=== PATIENT | male | born 1960 | race Caucasian/White ===

== ENCOUNTER 2020-07-31 08:49 | Emergency (ER) | payer MEDICAID ==
[~2020-07-31] VITALS: Ht 170.2 cm; Wt 69.9 kg
--- NOTE | 2020-07-31 08:49 | NUR ---
PT BIBRA FROM PRISON C/O SI WITH NO SPECIFIC PLAN. PT IS AAOX3, NOT IN RESPIRATORY DISTRESS, V/S STABLE, KEPT RESTED AND COMFORTABLE. WILL CONTINUE TO MONITOR, REUBEN SITTER AT BEDSIDE.
--- NOTE | 2020-07-31 08:55 | NUR ---
AT BEDSIDE FOR EVAL.
--- NOTE | 2020-07-31 09:00 | NUR ---
ER PHLEB AT BEDSIDE FOR BLOOD DRAW.
[2020-07-31 09:34] LABS: BASOPHILS # (AUTO) 0.1 /CMM (0.0-0.2); BASOPHILS % (AUTO) 0.6 % (0.0-2.0); EOSINOPHILS % (AUTO) 1.3 % (0.0-6.0); HEMATOCRIT 37 % (39-51); HEMOGLOBIN 12.2 g/dL (13.5-17.5); LYMPHOCYTES # (AUTO) 1.4 /CMM (0.8-4.8); LYMPHOCYTES % (AUTO) 12.4 % (20.0-44.0); MEAN CORPUSCULAR HGB CONC 33 g/dl (31.0-36.0); MEAN CORPUSCULAR VOLUME 84 fL (80-96); MONOCYTES # (AUTO) 0.9 /CMM (0.1-1.30); MONOCYTES % (AUTO) 7.9 % (2.0-12.0); NEUTROPHILS # (AUTO) 8.6 /CMM (1.8-8.9); NEUTROPHILS % (AUTO) 77.8 % (43.0-81.0); PLATELET COUNT (AUTO) 348 /CMM (150-450); RED BLOOD CELL COUNT(AUTO) 4.44 MIL/uL (4.5-6.0); WHITE BLOOD COUNT (AUTO) 11.1 K/uL (4.3-11.0)
[2020-07-31 09:39] LABS: CALCIUM, SERUM 9.5 mg/dL (8.5-10.1); CARBON DIOXIDE 27 mmol/L (21-32); CHLORIDE 103 mmol/L (98-107); CREATININE 1.1 mg/dL (0.6-1.3); GLUCOSE 122 mg/dL (74-106); SODIUM SERUM 139 mmol/L (136-145); UREA NITROGEN, BLOOD 18 mg/dL (7-18)
[2020-07-31 09:47] LABS: ACETAMINOPHEN 0 ug/ml (10-30); ALANINE AMINOTRANSFERASE 40 U/L (12-78); ALBUMIN 3.4 g/dL (3.4-5.0); ALCOHOL, BLOOD < 3 mg/dL (0-0); ALKALINE PHOSPHATASE 70 U/L (46-116); ASPARTATE AMINOTRANSFERASE 51 U/L (15-37); BILIRUBIN,DIRECT 0.1 mg/dL (0.0-0.2); BILIRUBIN,TOTAL 0.4 mg/dL (0.2-1.0); TOTAL PROTEIN, SERUM 8.1 g/dL (6.4-8.2)
--- NOTE | 2020-07-31 10:02 | NUR ---
URINE SPECIMEN COLLECTED AND SENT TO LAB.
[2020-07-31] MEDS ORDERED: LORAZEPAM INJ 2 MG/ML VIAL ONE (10:10)
[2020-07-31] MEDS ORDERED: HALOPERIDOL LACTATE INJ 5 MG/ML VIAL ONE ×2 (10:10→16:17)
[2020-07-31] MEDS ORDERED: diphenhydrAMINE HCL 50 MG/ML VIAL ONE ×2 (10:10→16:17)
[2020-07-31] MEDS ORDERED: HALOPERIDOL LACTATE INJ 5 MG/ML VIAL IM ONE ×2 (10:30→15:00)
[2020-07-31] MEDS ORDERED: LORAZEPAM INJ 2 MG/ML VIAL IM/IV ONE (10:30)
[2020-07-31] MEDS ORDERED: diphenhydrAMINE HCL 50 MG/ML VIAL IM ONE ×2 (10:30→15:00)
[2020-07-31 10:43] LABS: BILIRUBIN,URINE SMALL (NEGATIVE); COLOR,URINE YELLOW (YELLOW); LEUKOCYTE ESTERASE ,URINE NEGATIVE (NEGATIVE); NITRITE, URINE NEGATIVE (NEGATIVE); PROTEIN,URINE 100 mg/dl (NEGATIVE); UGLUCOSE NEGATIVE (NEGATIVE)
[2020-07-31 11:36] LABS: BACTERIA,URINE Few /HPF (None Seen); FINE GRANULAR CASTS,URINE Few /LPF (None Seen); RBC,URINE 0-2 /HPF (0-2); SQUAMOUS EPITHELIAL CELL,UR Few /HPF (None Seen); WBC,URINE 0-2 /HPF (0-3)
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
--- NOTE | 2020-07-31 19:36 | NUR ---
ASSUMED CARE. PT RESTING QUIETLY, NO ACUTE DISTRESS NOTED, RESP EVEN AND UNLABORED. 1:1 SITTER ATBEDSIDE FOR PT SAFETY.
--- NOTE | 2020-08-01 00:03 | NUR ---
PT ASLEEP, NO ACUTE DISTRESS NOTED, RESP EVEN AND UNLABORED. CALL LIGHT WIHTIN REACH. WILL CONTINUE TO MONITOR PT. 1:1 SITTER REMAINS AT BEDSIDE.
--- NOTE | 2020-08-01 06:26 | NUR ---
PT ASLEEP, NO ACUTE DISTRESS NOTED, RESP EVEN AND UNLABORED. CALL LIGHT WIHTIN REACH. WILL CONTINUE TO MONITOR PT. 1:1 SITTER REMAINS AT BEDSIDE.
--- NOTE | 2020-08-01 08:30 | NUR ---
PT ASLEEP, EASILY AROUSABLE, NO ACUTE DISTRESS NOTED, RESP EVEN AND UNLABORED. CALL LIGHT WITHIN REACH. WILL CONTINUE TO MONITOR PT. 1:1 SITTER REMAINS AT BEDSIDE.
--- NOTE | 2020-08-01 09:19 | NUR ---
CALLED MARLENI [phone] SHE SAID SCHEDULE IS INCORRECT AND TO CALL MARVIN
--- NOTE | 2020-08-01 09:21 | NUR ---
CALLED MARVIN [phone] [facility].
[2020-08-01] MEDS ORDERED: HALOPERIDOL LACTATE INJ 5 MG/ML VIAL IM ONE (09:30)
[2020-08-01] MEDS ORDERED: HALOPERIDOL LACTATE INJ 5 MG/ML VIAL ONE (09:31)
--- NOTE | 2020-08-01 09:36 | NUR ---
agitated. haldol 5mg im given. sitter at bedside. stable vitals.
--- NOTE | 2020-08-01 11:11 | NUR ---
Follow up: SW met with pt. bedside. Patient is lying in bed, awake with eyes close and responding to internal stimuli. Pt.'s speech is pressured and slurred. Pt. was medicated with Haldol IM this morning. CARLIE notified SS Director, Marce Saldivar that pt. may benefit from being placed on a hold for psychiatric treatment as pt.'s symptoms do not seem to be improving. SW will follow up as needed. CARLIE called admitting [phone] to assist pt. with applying for presumptive [facility]. SW will follow up as needed.
--- NOTE | 2020-08-01 11:30 | NUR ---
PATIENT STILL ASLEEP, EASILY AROUSABLE. NO DISTRESS NOTED. RESTRAINTS ARE OFF.
[2020-08-01] MEDS ORDERED: OLANZAPINE 10 MG VIAL IM ONE ×4 (16:24→19:46)
--- NOTE | 2020-08-01 17:44 | NUR ---
LAB CALLED PT COVID NEGATIVE (-)
[2020-08-01] MEDS ORDERED: LORAZEPAM INJ 2 MG/ML VIAL IM ONE (21:00)
[2020-08-01] MEDS ORDERED: diphenhydrAMINE HCL 50 MG/ML VIAL IM ONE (21:00)
--- NOTE | 2020-08-02 02:05 | NUR ---
PT ASLEEP, NO ACUTE DISTRESS NOTED, RESP EVEN AND UNLABORED. CALL LIGHT WIHTIN REACH. WILL CONTINUE TO MONITOR PT. 1:1 SITTER REMAINS AT BEDSIDE.
--- NOTE | 2020-08-02 05:58 | NUR ---
pt ambulatory to the bathroom with steady gait note. pt aaox4 no acute distress noted, resp even and unlabored. 1:1 sitter remains at bedside. will continue to monitor pt closely.
--- NOTE | 2020-08-02 08:01 | NUR ---
Patient is resting comfortably in bed with eyes closed. Easily aroused. VSS. SITTER AT BS & WILL CONT TO MONITOR.
--- NOTE | 2020-08-02 08:13 | NUR ---
CALLED RICKI SMITH FOR ASSISTANCE WITH PLACEMENT,SHE WILL CALL CAMILA SMITH AT [facility]
--- NOTE | 2020-08-02 09:06 | NUR ---
Clinicals faxed to [facility] [address] [place] [address];TEL: [phone] ATTN: INTAKE. SW will follow up as needed.
--- NOTE | 2020-08-02 12:29 | NUR ---
PT AWAKE. VERBALLY RESPONSIVE. PROVIDED W/ MEAL TRAY. STABLE VITALS. SITTER AT BEDSIDE.
--- NOTE | 2020-08-02 20:01 | NUR ---
PT CONFUSED, CONSTANTLY GETTING OUT OF BED AND GOING TO OTHER PT'S ROOM. PT EASILY DIRECTABLE, MUMBLING. ASSISTED PT BACK TO BED. 1:1 SITTER AT [facility] FOR PT SAFETY. MARLEEN HAWKINS MADE AWARE.
[2020-08-02] MEDS ORDERED: OLANZAPINE 10 MG VIAL IM ONE ×2 (20:20→20:30)
--- NOTE | 2020-08-02 20:28 | NUR ---
Spoke to Mamie from [facility] and declined pt.
--- NOTE | 2020-08-02 21:01 | NUR ---
Clinicals faxed to [facility] as requested.
--- NOTE | 2020-08-03 00:33 | NUR ---
Spoke to Mamie to follow up regarding pt.
--- NOTE | 2020-08-03 04:49 | NUR ---
PATIENT IS SLEEPING. EASILY AROUSABLE THROUGH VERBAL STIMULI. PATIENT IS BREATHING EVENLY AND UNLABORED ON ROOM AIR. CONNECTED TO THE MONITOR. PATIENT'S BED IS AT THE LOWEST POSITION. SIDE RAILS ARE UP FOR SAFETY. SITTER IS AT BEDSIDE. WILL CONTINUE TO MONITOR THE PATIENT CLOSELY.
--- NOTE | 2020-08-03 05:06 | NUR ---
Spoke to Mamie to follow up regarding pt.
--- NOTE | 2020-08-03 06:11 | NUR ---
Pt. accepted at [facility] per Mamie (intake). Per Mamie charge nurse will call for transfer information shortly.
--- NOTE | 2020-08-03 11:32 | NUR ---
FAMILY AT BEDSIDE. SEEMA BROTHER LEFT CONTACT # [phone]
--- NOTE | 2020-08-03 13:18 | NUR ---
SPOKE TO CHICHI FROM [facility]. PATIENT ACCEPTED. PATIENT IS GOING TO ROOM NUMBER 126-A. NUMBER FOR REPORT IS [phone]. DR. LANDIN IS THE ACCEPTING.
--- NOTE | 2020-08-03 13:46 | NUR ---
CALLED [facility] FOR TRANSPORT TO [facility]. ETA 30 MINUTES.
[2020-08-03 13:50] VITALS: BP 131/94
--- NOTE | 2020-08-03 14:10 | NUR ---
REPORT GIVEN TO TEGAN HENSON AT [facility].
== END 2020-08-03 06:11 ==
LOC: ER 08:49
DX: R45.851 Suicidal ideations (principal); F29 Unspecified psychosis not due to a substance or known physiological condition; Z20.822 Contact with and (suspected) exposure to COVID-19; Z59.0 Homelessness
CPT/HCPCS: 36415; 80048; 80076; 80299; 80307; 80320; 81001; 85025; 96372 ×4; 99285; J1200 ×2; J1630 ×3; J2060; J3490 ×3; G0480